=== PATIENT | male | born 1980 | race Caucasian/White ===

== ENCOUNTER → 2019-08-18 | Outpatient (CLI) | payer OTHER ==
--- NOTE | 2019-08-18 14:00 | Diagnostic Imaging Report ---
PROCEDURE: US Scrotum. TECHNIQUE: Multiple Real-time grayscale images were obtained over the scrotum in various projections bilaterally. Spectral and color-flow imaging was also performed. INDICATION: Left testicular lump. COMPARISON: There are no prior studies available for comparison. FINDINGS: Both testicles are identified. The right testicle measures 4.9 x 2.3 x 3.0 cm while the left testicle is estimated to be 3.9 x 2.2 x 2.7 cm. There is no evidence for a solid testicular mass and there is no sign of torsion. There is no evidence for epididymitis. There is a small 1.9 x1.2 x 0.9 cm soft tissue fullness along the head of the epididymis on the left. This may merely represent a portion of the epididymis. I am not convinced that this is a mass. Even so, a urologic consult would be recommended. There is no varicocele formation evident. There is a small hydrocele on the left. IMPRESSION: 1. There is no evidence for a solid testicular mass and there is no sign of torsion. 2. There is no evidence for epididymitis either; however, the soft tissue fullness along the head of the epididymis on the left is of uncertain etiology. Recommendations as above. Dictated by: Dictated on workstation # [id number]
== END ==
LOC: RAD 12:02
PROVIDERS: ATTEND Urology
DX: N50.89 Other specified disorders of the male genital organs (principal); N45.1 Epididymitis
CPT/HCPCS: 76870